=== PATIENT | female | born 1960 | race Caucasian/White ===

== ENCOUNTER 2021-01-16 18:00 | Emergency (ER) | payer OTHER ==
[2021-01-16 19:34] LABS: HEMOGLOBIN 14.3 gm/dl (12.3-15.3); RED BLOOD COUNT 4.82 M/UL (4.00-5.10); WHITE BLOOD COUNT 9.2 K/UL (4.5-11.0)
[2021-01-16 20:02] LABS: BUN/CREATININE RATIO 12 (0-10)
== END 2021-01-17 00:17 | disposition home or self-care (01) ==
LOC: ER1 18:00
PROVIDERS: Physician Assistant
DX: R07.9 Chest pain, unspecified (principal); I25.2 Old myocardial infarction; E11.43 Type 2 diabetes mellitus with diabetic autonomic (poly)neuropathy; K31.84 Gastroparesis; I10 Essential (primary) hypertension; Z95.1 Presence of aortocoronary bypass graft; F17.210 Nicotine dependence, cigarettes, uncomplicated
CPT/HCPCS: 71045; 80053; 82550; 82553; 83874; 84484; 85025; 93005; 99285

== ENCOUNTER 2021-01-18 16:03 | Emergency (ER) | payer OTHER ==
[~2021-01-18] VITALS: Ht 165.1 cm; Wt 95.3 kg
[2021-01-18 19:13] LABS: HEMOGLOBIN 15.1 gm/dl (12.3-15.3); RED BLOOD COUNT 4.73 M/UL (4.00-5.10); WHITE BLOOD COUNT 9.3 K/UL (4.5-11.0)
[2021-01-18 19:50] LABS: BUN/CREATININE RATIO 14 (0-10)
[2021-01-19 04:05] LABS: HEMOGLOBIN 13.9 gm/dl (12.3-15.3); RED BLOOD COUNT 4.44 M/UL (4.00-5.10); WHITE BLOOD COUNT 7.2 K/UL (4.5-11.0)
[2021-01-19 04:58] LABS: BUN/CREATININE RATIO 12 (0-10)
[2021-01-19] MEDS ORDERED: GABAPENTIN600 MG PO (11:43)
[2021-01-19] MEDS ORDERED: FERROUS SULFAT325 MG PO (11:43)
[2021-01-19] MEDS ORDERED: ELIQUIS5 MG PO (11:44)
[2021-01-19] MEDS ORDERED: METOCLOPRAMIDE H5 MG PO (11:44)
[2021-01-19] MEDS ORDERED: CETIRIZINE HCL10 MG PO (11:44)
[2021-01-19] MEDS ORDERED: GLUCOPHAGE 500500 MG PO (11:45)
[2021-01-19] MEDS ORDERED: PROTONIX 40 MG40 M1 PO (11:46)
[2021-01-19] MEDS ORDERED: CLOPIDOGREL75 MG PO (11:46)
[2021-01-19] MEDS ORDERED: VENTOLIN HFA 66.7 GM INH (11:46)
[2021-01-19] MEDS ORDERED: HUMALOG MI100 UNITS/ SQ (11:51)
[2021-01-19] MEDS ORDERED: REFRESH TEARS15 ML OU (12:14)
[2021-01-19] MEDS ORDERED: ULTRAM50 MG PO (12:14)
[2021-01-19] MEDS ORDERED: ZEBETA 5 MG TAB5 MG PO (12:15)
[2021-01-19] MEDS ORDERED: LASIX20 MG PO (12:15)
[2021-01-19] MEDS ORDERED: BUSPIRONE HCL15 MG PO (12:15)
[2021-01-19] MEDS ORDERED: ALBUTEROL1.25 MG/3 INH (12:16)
[2021-01-19] MEDS ORDERED: TRELEGY ELLIPT1 EACH INH (12:17)
[2021-01-19] MEDS ORDERED: ZESTRIL5 MG PO (12:17)
[2021-01-19] MEDS ORDERED: LEVOTHYROXINE175 MC1 PO (12:18)
[2021-01-19] MEDS ORDERED: NITROSTAT0.4 MG SL (12:18)
[2021-01-19] MEDS ORDERED: REMERON15 MG PO (12:18)
[2021-01-19] MEDS ORDERED: PROVENTIL HFA6.7 GM INH (12:19)
[2021-01-19] MEDS ORDERED: LEVOFLOXACIN750 MG PO (17:04)
== END 2021-01-19 17:25 | disposition home or self-care (01) ==
LOC: ER1 16:03 → CDU 22:05 → ER1 22:05 → CDU 22:05
PROVIDERS: Internal Medicine; Physician Assistant
DX: J44.9 Chronic obstructive pulmonary disease, unspecified (principal); E11.9 Type 2 diabetes mellitus without complications; I25.10 Atherosclerotic heart disease of native coronary artery without angina pectoris; Z90.49 Acquired absence of other specified parts of digestive tract; Z79.01 Long term (current) use of anticoagulants; F17.210 Nicotine dependence, cigarettes, uncomplicated; I10 Essential (primary) hypertension; E78.5 Hyperlipidemia, unspecified; E03.9 Hypothyroidism, unspecified; Z20.822 Contact with and (suspected) exposure to COVID-19; Z95.1 Presence of aortocoronary bypass graft
CPT/HCPCS: 36600; 71045; 80048; 80053; 82550; 82553; 82803; 82962; 83874; 83880; 84132; 84484; 85025; 85379; 93005; 94640; 94760; 96365; 96366; 96367; 96372; 96375; 99285; G0378; J0456; J0696; J1650; J2270; J7030; U0002

== ENCOUNTER 2021-07-16 09:18 | Emergency (ER) | payer OTHER ==
[~2021-07-16 09:18] MED LIST: ALBUTEROL2.5 MG/3 M INH; BUSPIRONE HCL15 MG PO; CLOPIDOGREL75 MG PO; DOXYCYCLINE HY100 M2 PO; DULOXETINE HCL60 MG PO; ELIQUIS5 MG PO; FERROUS GLUCON324 M1 PO; GABAPENTIN600 MG PO; GLUCOPHAGE 500500 MG PO; HUMALOG MI100 UNITS/ SQ; LASIX20 MG PO; LEVOFLOXACIN750 MG PO; LEVOTHYROXINE175 MCG PO; LORATADINE10 MG PO; MEDROL DOSEPAK 24 MG PO; METOCLOPRAMIDE H5 MG PO; NITROSTAT0.4 MG SL; POTASSIUM CHLO20 ME1 PO; PROTONIX 40 MG40 M1 PO; PROVENTIL HFA6.7 GM INH; REFRESH TEARS15 ML OU; REMERON15 MG PO; TRELEGY ELLIPT1 EACH INH; ULTRAM50 MG PO; VENTOLIN HFA 66.7 GM INH; VITAMIN D31250 MCG PO; ZEBETA 5 MG TAB5 MG PO; ZESTRIL5 MG PO
[2021-07-16 10:12] LABS: HEMOGLOBIN 12.8 gm/dl (12.3-15.3); RED BLOOD COUNT 3.87 M/UL (4.00-5.10); WHITE BLOOD COUNT 6.8 K/UL (4.5-11.0)
[2021-07-16 10:35] LABS: BUN/CREATININE RATIO 17 (0-10)
[2021-07-16] MEDS ORDERED: PYRIDIUM200 MG PO (15:20)
[2021-07-16] MEDS ORDERED: OMNICEF 300 MG300 MG PO (15:20)
== END 2021-07-16 15:50 | disposition home or self-care (01) ==
LOC: ER1 09:18
PROVIDERS: Family Medicine
DX: U07.1 COVID-19 (principal); N39.0 Urinary tract infection, site not specified; E11.65 Type 2 diabetes mellitus with hyperglycemia; R10.9 Unspecified abdominal pain; Z99.81 Dependence on supplemental oxygen; G89.29 Other chronic pain; I10 Essential (primary) hypertension; E66.01 Morbid (severe) obesity due to excess calories; F17.200 Nicotine dependence, unspecified, uncomplicated; Z95.1 Presence of aortocoronary bypass graft; Z79.4 Long term (current) use of insulin; K21.9 Gastro-esophageal reflux disease without esophagitis; E78.5 Hyperlipidemia, unspecified
CPT/HCPCS: 71045; 80053; 81001; 82009; 82550; 82553; 83605; 83690; 83874; 84484; 85025; 85610; 86140; 87077; 87086; 87186; 93005; 96374; 96375; 99285; J0696; J2405; J7030; U0002

== ENCOUNTER → 2021-07-19 | Outpatient (CLI) | payer OTHER ==
[~2021-07-19] VITALS: Ht 165.1 cm; Wt 88.0 kg
[~2021-07-19] MED LIST changes: +OMNICEF 300 MG300 MG PO; +PYRIDIUM200 MG PO
== END ==
LOC: EROP 12:26
DX: U07.1 COVID-19 (principal); Z23 Encounter for immunization; J98.4 Other disorders of lung; E11.9 Type 2 diabetes mellitus without complications; I11.9 Hypertensive heart disease without heart failure
CPT/HCPCS: M0247; Q0247

== ENCOUNTER → 2021-09-13 | Outpatient (CLI) | payer OTHER | LOC: KOH-I 14:30 | DX: F17.210 Nicotine dependence, cigarettes, uncomplicated (principal); R91.8 Other nonspecific abnormal finding of lung field | CPT/HCPCS: 71271 ==

== ENCOUNTER → 2021-09-29 | Outpatient (CLI) | payer OTHER | LOC: EXRD 09-21 11:30 | DX: M81.0 Age-related osteoporosis without current pathological fracture (principal); Z72.0 Tobacco use; M85.88 Other specified disorders of bone density and structure, other site | CPT/HCPCS: 77080 ==

== ENCOUNTER → 2021-09-30 | Outpatient (CLI) | payer OTHER | LOC: HEART 5 14:30 | DX: J44.9 Chronic obstructive pulmonary disease, unspecified (principal); J84.10 Pulmonary fibrosis, unspecified | CPT/HCPCS: 94060; 94729 ==

== ENCOUNTER 2021-11-04 11:50 | Emergency (ER) | payer OTHER ==
[2021-11-04 12:56] LABS: HEMOGLOBIN 14.2 gm/dl (12.3-15.3); RED BLOOD COUNT 4.81 M/UL (4.00-5.10); WHITE BLOOD COUNT 8.3 K/UL (4.5-11.0)
[2021-11-04 13:37] LABS: BUN/CREATININE RATIO 13 (0-10)
== END 2021-11-04 14:21 | disposition home or self-care (01) ==
LOC: ER1 11:50
PROVIDERS: Physician Assistant
DX: R55 Syncope and collapse (principal); S00.83XA Contusion of other part of head, initial encounter; S60.221A Contusion of right hand, initial encounter; S00.511A Abrasion of lip, initial encounter; E11.43 Type 2 diabetes mellitus with diabetic autonomic (poly)neuropathy; R06.2 Wheezing; I25.2 Old myocardial infarction; I10 Essential (primary) hypertension; J44.9 Chronic obstructive pulmonary disease, unspecified; Z95.5 Presence of coronary angioplasty implant and graft; Z90.49 Acquired absence of other specified parts of digestive tract; W19.XXXA Unspecified fall, initial encounter; F17.210 Nicotine dependence, cigarettes, uncomplicated
CPT/HCPCS: 70450; 70486; 71045; 72125; 73090; 73130; 80053; 81001; 82550; 82553; 84484; 85025; 87086; 90471; 90715; 93005; 93242; 94664; 99284

== ENCOUNTER 2022-02-16 18:10 | Observation (INO) | payer OTHER ==
[~2022-02-16] VITALS: Ht 165.1 cm; Wt 83.5 kg
[2022-02-16 18:39] LABS: HEMOGLOBIN 13.8 gm/dl (12.3-15.3); RED BLOOD COUNT 4.37 M/UL (4.00-5.10); WHITE BLOOD COUNT 13.1 K/UL (4.5-11.0)
[2022-02-17] MEDS ORDERED: VITAMIN D21250 MCG PO (10:23)
[2022-02-17] MEDS ORDERED: ELIQUIS5 MG PO (10:24)
[2022-02-17] MEDS ORDERED: LISINOPRIL5 MG PO (10:24)
[2022-02-17] MEDS ORDERED: FERROUS GLUCON324 M1 PO (10:26)
[2022-02-17] MEDS ORDERED: FLONASE 0.05% N16 GM (10:27)
[2022-02-17] MEDS ORDERED: LEVOTHYROXINE50 MCG PO (10:28)
[2022-02-17] MEDS ORDERED: METFORMIN HCL1000 MG PO (10:31)
[2022-02-17] MEDS ORDERED: HUMALOG MI100 UNIT/3 SQ (10:32)
[2022-02-17] MEDS ORDERED: LORATADINE10 MG PO (10:33)
[2022-02-17] MEDS ORDERED: ATORVASTATIN CA40 MG PO (10:35)
[2022-02-17] MEDS ORDERED: DULOXETINE HCL60 MG PO (10:36)
[2022-02-17] MEDS ORDERED: TRELEGY ELLIPT1 EACH INH (10:37)
[2022-02-17] MEDS ORDERED: HYDROXYZINE HCL25 MG PO (10:41)
[2022-02-17] MEDS ORDERED: MIRTAZAPINE15 MG PO (10:43)
[2022-02-17] MEDS ORDERED: PROTONIX40 MG PO (10:44)
[2022-02-17] MEDS ORDERED: CLOPIDOGREL75 MG PO (10:45)
[2022-02-17] MEDS ORDERED: MOTRIN IB200 MG PO (10:47)
[2022-02-17] MEDS ORDERED: ISOSORBIDE MONO30 MG PO (11:47)
== END 2022-02-17 13:34 | disposition home or self-care (01) ==
LOC: ER1 18:10 → CDU 22:51 → M/S 22:51
PROVIDERS: ADMIT Internal Medicine
DX: R07.89 Other chest pain (principal); E87.6 Hypokalemia; K59.00 Constipation, unspecified; I25.10 Atherosclerotic heart disease of native coronary artery without angina pectoris; I82.402 Acute embolism and thrombosis of unspecified deep veins of left lower extremity; J44.9 Chronic obstructive pulmonary disease, unspecified; I10 Essential (primary) hypertension; E11.9 Type 2 diabetes mellitus without complications; I25.2 Old myocardial infarction; E78.5 Hyperlipidemia, unspecified; F41.9 Anxiety disorder, unspecified; K21.9 Gastro-esophageal reflux disease without esophagitis; E03.9 Hypothyroidism, unspecified; Z95.1 Presence of aortocoronary bypass graft; Z86.74 Personal history of sudden cardiac arrest; Z79.01 Long term (current) use of anticoagulants; Z79.02 Long term (current) use of antithrombotics/antiplatelets; Z99.81 Dependence on supplemental oxygen; Z72.0 Tobacco use; Z90.49 Acquired absence of other specified parts of digestive tract; Z82.49 Family history of ischemic heart disease and other diseases of the circulatory system
CPT/HCPCS: 36415; 71045; 80053; 82550; 82553; 82962; 83880; 84132; 84484; 85025; 93005; 96374; 96376; 99285; G0378; J2270; J2405; Q9967; U0002